=== PATIENT | male | born 2005 | race Hispanic/Latino ===

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

== ENCOUNTER 2024-03-10 07:47 | Emergency (ER) | payer SELFPAY ==
--- NOTE | 2024-03-10 08:28 | ER ---
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 patient denies any nausea or vision changes due to this pain. patient reports he just noticed the bump and the pain yesterday. Coronavirus screen: At this time, the client does not indicate any symptoms associated with coronavirus-19. Ebola Screen: No symptoms or risks identified at this time. Initial Sepsis Screen: Does the patient meet any 2 criteria? No. Patient's initial sepsis screen is negative. Does the patient have a suspected source of infection? No. Patient's initial sepsis screen is negative. Risk Assessment: Do you want to hurt yourself or someone else? Patient reports no desire to harm self or others. Onset of symptoms was March 09, 2024. 08:09 Method Of Arrival: Ambulatory ap3 08:09 Acuity: DIDIER 4 ap3 Triage Assessment: 08:12 General: Appears in no apparent distress. Behavior is calm, cooperative, appropriate ap3 for age. Pain: Complains of pain in left base of the skull Pain at worst was 10 out of 10 on a pain scale. Aggravated by touch. Neuro: Level of Consciousness is awake, alert, obeys commands, Oriented to person, place, time, situation, Gait is steady, Speech is normal, Facial symmetry appears normal. Cardiovascular: Patient's skin is warm and dry. Respiratory: Airway is patent Respiratory effort is even, unlabored, Respiratory pattern is regular, symmetrical. Historical: - Allergies: 08:11 No Known Allergies; ap3 - Home Meds: 08:11 None [Active]; ap3 - PMHx: 08:11 None; ap3 - Immunization history:: Adult Immunizations not up to date. - Infectious Disease History:: Denies. - Social history:: Smoking status: Patient denies any tobacco usage or history of. Screenin:13 Abuse screen: Denies threats or abuse. Nutritional screening: No deficits noted. ap3 Tuberculosis screening: No symptoms or risk factors identified. 08:36 [facility] ED Fall Risk Assessment (Adult) History of falling in the last 3 months, iw including since admission No falls in past 3 months (0 pts) Confusion or Disorientation No (0 pts) Intoxicated or Sedated No (0 pts) Impaired Gait No (0 pts) Mobility Assist Device Used No (0 pt) Altered Elimination No (0 pt) Score/Fall Risk Level 0 - 2 = Low Risk Oriented to surroundings, Maintained a safe environment. Assessment: 08:35 General: Appears in no apparent distress. Behavior is calm, cooperative. Pain: iw Complains of pain in scalp and left base of the skull. Neuro: Level of Consciousness is awake, alert, obeys commands, Oriented to person, place, time, situation, Moves all extremities. Full function. Cardiovascular: Patient's skin is warm and dry. Respiratory: Respiratory effort is even, unlabored, Respiratory pattern is symmetrical. Derm: Skin is intact, is healthy with good turgor. Musculoskeletal: Range of motion: intact in all extremities. Vital Signs: 08:09 BP 142 / 80; Pulse 72; Resp 18; Temp 97.5; Pulse Ox 100% ; Weight 95 kg; ap3 ED Course: 07:57 Patient arrived in ED. mg5 08:02 Kiet Waddell MD is Attending Physician. sp3 08:09 Nataliia Sim, AYLIN is Primary Nurse. db 08:11 Triage completed. ap3 08:13 Arm band placed on right wrist. ap3 08:36 Patient has correct armband on for positive identification. Provided Education on: d/c iw instructions . 08:36 No provider procedures requiring assistance completed. Patient did not have IV access iw during this emergency room visit. Administered Medications: No medications were administered Medication: 08:36 VIS not applicable for this client. iw Outcome: 08:27 Discharge ordered by . sp3 08:36 Discharged to home ambulatory, iw 08:36 Condition: good 08:36 Discharge instructions given to patient, Instructed on discharge instructions, follow up and referral plans. Demonstrated understanding of instructions, follow-up care, medications, Prescriptions given X 1, 08:37 Patient left the ED. iw Signatures: Dana Ortiz RN RN iw Ashlie Gunter RN RN ap3 Kiet Waddell MD MD sp3 Nataliia Sim RN RN db Shilpa Gilbert mg5
--- NOTE | 2024-03-10 08:28 | EDPHYS ---
Physician Documentation [facility] Name: Jake Garg Age: 18 yrs Sex: Male : 2005 Arrival Date: 03/10/2024 Time: 07:47 Bed 8 Private MD: ED Physician Kiet Waddell HPI: 03/10 08:22 This 18 yrs old Male presents to ER via Ambulatory with complaints of Headache.sp3 08:22 18-year-old male with no past medical history presents with left neck swelling/cyst for sp3 approximately 2 days where he first noticed it. 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 He also states he "slept on it wrong" a few days ago after which she noticed a cyst. He denies any direct trauma, fever, other swelling, lymph node swelling, sore throat, chest pain, shortness of breath, back pain, any other signs or symptoms on ROS at this time. All history physical was performed with tinsel machine operator via tinsel machine operator line.. Historical: - Allergies: 08:11 No Known Allergies; ap3 - Home Meds: 08:11 None [Active]; ap3 - PMHx: 08:11 None; ap3 - Immunization history:: Adult Immunizations not up to date. - Infectious Disease History:: Denies. - Social history:: Smoking status: Patient denies any tobacco usage or history of. ROS: 08:23 Constitutional: Negative for fever, chills, and weight loss, Eyes: Negative for injury, sp3 pain, redness, and discharge, ENT: Negative for injury, pain, and discharge, Neck: Negative for injury, pain, and swelling, Cardiovascular: Negative for chest pain, palpitations, and edema, Respiratory: Negative for shortness of breath, cough, wheezing, and pleuritic chest pain, Abdomen/GI: Negative for abdominal pain, nausea, vomiting, diarrhea, and constipation, : Negative for injury, bleeding, discharge, and swelling, Skin: Negative for injury, rash, and discoloration, Neuro: Negative for headache, weakness, numbness, tingling, and seizure, Psych: Negative for depression, anxiety, suicide ideation, homicidal ideation, and hallucinations, Allergy/Immunology: Negative for hives, rash, and allergies, Endocrine: Negative for neck swelling, polydipsia, polyuria, polyphagia, and marked weight changes, Hematologic/Lymphatic: Negative for swollen nodes, abnormal bleeding, and unusual bruising, 08:23 All other systems are negative, Exam: 08:24 Constitutional: This is a well developed, well nourished patient who is awake, alert, sp3 and in no acute distress. Head/Face: Normocephalic, atraumatic. Eyes: Pupils equal round and reactive to light, extra-ocular motions intact. Lids and lashes normal. Conjunctiva and sclera are non-icteric and not injected. Cornea within normal limits. Periorbital areas with no swelling, redness, or edema. Chest/axilla: Normal chest wall appearance and motion. Nontender with no deformity. No lesions are appreciated. Cardiovascular: Regular rate and rhythm with a normal S1 and S2. No gallops, murmurs, or rubs. Normal PMI, no JVD. No pulse deficits. Respiratory: Lungs have equal breath sounds bilaterally, clear to auscultation and percussion. No rales, rhonchi or wheezes noted. No increased work of breathing, no retractions or nasal flaring. Abdomen/GI: Soft, non-tender, with normal bowel sounds. No distension or tympany. No guarding or rebound. No evidence of tenderness throughout. Back: No spinal tenderness. No costovertebral tenderness. Full range of motion. Skin: Warm, dry with normal turgor. Normal color with no rashes, no lesions, and no evidence of cellulitis. MS/ Extremity: Pulses equal, no cyanosis. Neurovascular intact. Full, normal range of motion. Neuro: Awake and alert, GCS 15, oriented to person, place, time, and situation. Cranial nerves II-XII grossly intact. Motor strength 5/5 in all extremities. Sensory grossly intact. Cerebellar exam normal. Normal gait. Psych: Awake, alert, with orientation to person, place and time. Behavior, mood, and affect are within normal limits. 08:24 Neck: 1 cm cyst along the trapezius muscle on the left side of the neck noted. Cyst is mobile and does not resemble lymph node or any other concerning finding. , Vital Signs: 08:09 BP 142 / 80; Pulse 72; Resp 18; Temp 97.5; Pulse Ox 100% ; Weight 95 kg; ap3 MDM: 08:10 Patient medically screened. sp3 08:26 Data reviewed: vital signs. ED course: I have reassured patient that this is most sp3 likely benign. Will isolate and prescribe general anti-inflammatories. I have advised him not to carry lumber on his shoulder. If this is not resolved in 2 weeks it will need needle aspiration potential further investigation. I have clearly told him and he verbalized understanding that if it is not resolved he will need further investigation. At this time we will safely discharge him home. . Administered Medications: No medications were administered Disposition Summary: 03/10/24 08:27 Discharge Ordered Notes: Location: Home sp3 Condition: Stable sp3 Diagnosis - Subcutaneous cyst sp3 Followup: sp3 - With: Private Physician - When: Upon discharge from the Emergency Department - Reason: Recheck today's complaints Discharge Instructions: - Discharge Summary Sheet sp3 - Cervical Sprain sp3 Forms: - Medication Reconciliation Form sp3 - Antibiotic Education sp3 - Prescription Opioid Use sp3 - Patient Portal Instructions sp3 - Leadership Thank You Letter sp3 Prescriptions: - Diclofenac Sodium 75 mg Oral Tablet Sustained Release - take 1 tablet ORAL route 2 times per day; 30 tablet; Refills: 0, Product sp3 Selection Permitted Signatures: Dana Ortiz RN RN iw Ashlie Gunter RN RN ap3 Kiet Waddell MD MD sp3
[2024-03-10 08:47] VITALS: BP 142/80; TEMP 97.5; O2SAT 100
== END 2024-03-10 08:37 | disposition home or self-care (01) ==
LOC: ER 07:47
DX: L72.3 Sebaceous cyst (principal)